=== PATIENT | female | born 1975 ===

== ENCOUNTER 2020-09-10 00:11 | Emergency (ER) | payer MEDICAID ==
[~2020-09-10] VITALS: Ht 154.9 cm; Wt 80.7 kg
[2020-09-10 00:13] VITALS: BP 171/88
[2020-09-10] MEDS ORDERED: KETOROLAC 30 MG/1 ML IM ONE (00:30)
[2020-09-10] MEDS ORDERED: HYDROcodone/APAP 5/325 TABLET PO ONE (00:30)
[2020-09-10] MEDS ORDERED: KETOROLAC 60 MG/2 ML ONE (00:54)
[2020-09-10] MEDS ORDERED: HYDROcodone/APAP 5/325 TABLET ONE (00:55)
--- NOTE | 2020-09-10 01:03 | NUR ---
INITIAL CONTACT WITH PT. ASSESSMENT DONE. MEDS GIVEN CHARTED, 5 RIGHTS VERIFIED.
--- NOTE | 2020-09-10 01:24 | NUR ---
PT DC'D HOME WITH RX X 2 AND UNDERSTANDING OF INSTRUCTIONS PER FAMILY MEMBER. PT AND FAMILY MEMBER ESCORTED TO DC DESK. PT GAIT STEADY.
== END 2020-09-10 01:31 | disposition home or self-care (01) ==
LOC: ED 01:25
DX: K08.89 Other specified disorders of teeth and supporting structures (principal)
CPT/HCPCS: 96372; 99283; J1885